=== PATIENT | female | born 1995 | race Caucasian/White ===

== ENCOUNTER → 2025-03-26 | Outpatient (REF) | payer BC ==
[~2025-03-26] MED LIST: IOPAMIDOL 370 MG/ML 100 ML INFUS..BTL INJ ONE; METOPROLOL TARTRATE 25 MG TAB ONE; METOPROLOL TARTRATE INJ 1 MG/ML VIAL ONE; NITROGLYCERIN 0.4 MG SUBL ONE
== END ==
LOC: CT 07:55
PROVIDERS: ATTEND Internal Medicine Cardiovascular Disease
DX: R00.2 Palpitations (principal); R42 Dizziness and giddiness
CPT/HCPCS: 75574; Q9967